=== PATIENT | male | born 1955 | race Caucasian/White ===

== ENCOUNTER 2017-10-11 13:41 | Emergency (ER) | payer OTHER ==
[2017-10-11] MEDS ORDERED: Pantoprazole 40 MG Vial IVPUSH ONE (13:44)
[2017-10-11] MEDS ORDERED: Lactated Ringers 1,000 ML IV ONE (13:44)
[2017-10-11] MEDS ORDERED: Famotidine 20 MG/2 ML SDV IVPUSH ONE (13:44)
[2017-10-11] MEDS ORDERED: Ondansetron 4 MG/2 ML SDV IVPUSH ONE (13:44)
--- NOTE | 2017-10-11 13:44 | EDM.PDOC ---
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 GASTRO-ESOPHAGEAL REFLUX DISEASE WITHOUT ESOPHAGITIS Status: Chronic Priority: Medium Annotation/Comment:: Stable by history with high-dose IV Pepcid and IV Protonix given as GI prophylaxis. (7) Mixed anxiety depressive disorder SNOMED Code(s): 311627795 Code(s): F41.8 - OTHER SPECIFIED ANXIETY DISORDERS Status: Chronic Priority: Medium Annotation/Comment:: Stable by history - Problem List Review Problem List Initiated/Reviewed/Updated: Yes - My Orders Last 24 Hours: My Active Orders 10/11/17 13:44 Peripheral IV Care [RC] . DIRECTED Abdomen Pelvis w Cont [CT] Stat Obtain Past Medical Record [OM.PC] Urgent Peripheral IV Insertion Adult [OM.PC] Stat Resuscitation Status Stat 10/11/17 15:16 H PYLORI STOOL ANTIGEN [MREF] Urgent OCCULT BLOOD DIAGNOSTIC [OP] Stat 10/11/17 17:18 Communication Order [RC] ROUTINE 10/11/17 17:25 CULTURE URINE [RM] Stat UA W/MICROSCOPIC [URIN] Stat - Assessment/Plan Last 24 Hours: My Active Orders 10/11/17 13:44 Peripheral IV Care [RC] . DIRECTED Abdomen Pelvis w Cont [CT] Stat Obtain Past Medical Record [OM.PC] Urgent Peripheral IV Insertion Adult [OM.PC] Stat Resuscitation Status Stat 10/11/17 15:16 H PYLORI STOOL ANTIGEN [MREF] Urgent OCCULT BLOOD DIAGNOSTIC [OP] Stat 10/11/17 17:18 Communication Order [RC] ROUTINE 10/11/17 17:25 CULTURE URINE [RM] Stat UA W/MICROSCOPIC [URIN] Stat Assessment:: As above Plan: As above. Extensive precautions were given to the patient and his , who are in agreement with the treatment plan. Private automobile transfer to [facility] in [facility] for direct admission as above.
[2017-10-11] MEDS ORDERED: cefTRIAXone 1 GM in Sodium Chloride 0.9% 100 ML IV SCH (13:45)
[2017-10-11] MEDS ORDERED: metroNIDAZOLE/Normal Saline 500 MG in Premix Bag 1 BAG IV SCH (13:45)
[2017-10-11 14:03] LABS: CHLORIDE,CL 102 mmol/L (98-107); SODIUM,NA 137 mmol/L (136-145)
[2017-10-11] MEDS: Sodium Chloride 0.9% 10 ML Syringe FLUSH PRN ×2 (14:10→14:52)
[2017-10-11] MEDS ORDERED: Metoclopramide 10 MG/2 ML SDV IVPUSH ONE (14:47)
[2017-10-11] MEDS ORDERED: Iopamidol 612 MG/ML 100 ML Bottle IVPUSH ONE (14:51)
[2017-10-11] MEDS ORDERED: Meperidine PF 50 MG/ML Syringe IM ONE (14:59)
[2017-10-11] MEDS ORDERED: Promethazine 25 MG/ML SDV IM ONE (14:59)
== END 2017-10-11 18:00 ==
LOC: LL.ED 13:41
DX: K56.609 Unspecified intestinal obstruction, unspecified as to partial versus complete obstruction (principal); K21.9 Gastro-esophageal reflux disease without esophagitis; F41.8 Other specified anxiety disorders; I10 Essential (primary) hypertension; F17.210 Nicotine dependence, cigarettes, uncomplicated; E78.5 Hyperlipidemia, unspecified; Z71.6 Tobacco abuse counseling; Z79.899 Other long term (current) drug therapy
CPT/HCPCS: 36415; 74177; 80053; 81001; 82150; 82272; 83605; 83690; 83735; 84550; 85025; 85610; 85730; 87086; 87338; 96365; 96372; 96375; 99285; C9113; J0696; J2175; J2405; J2550; J2765; J3490; J7050; J7120; Q9967

== ENCOUNTER 2021-05-24 02:55 | Emergency (ER) | payer OTHER ==
[2021-05-24] MEDS ORDERED: Sodium Chloride 0.9% 10 ML Syringe FLUSH PRN (03:15)
[2021-05-24] MEDS ORDERED: Lactated Ringers 1,000 ML IV SCH (03:15)
[2021-05-24 03:46] LABS: ANION GAP 11.6 meq/L (7-15); CHLORIDE,CL 104 mmol/L (98-107); SODIUM,NA 140 mmol/L (136-145)
[2021-05-24] MEDS ORDERED: Acetaminophen 500 MG Tab PO ONE (04:46)
[2021-05-24] MEDS ORDERED: Ketorolac 30 MG/ML SDV IM ONE (04:47)
== END 2021-05-24 05:30 | disposition home or self-care (01) ==
LOC: LL.ED 02:55
DX: S01.81XA Laceration without foreign body of other part of head, initial encounter (principal); E78.00 Pure hypercholesterolemia, unspecified; I10 Essential (primary) hypertension; J45.909 Unspecified asthma, uncomplicated; K21.9 Gastro-esophageal reflux disease without esophagitis; N40.0 Benign prostatic hyperplasia without lower urinary tract symptoms; Z79.899 Other long term (current) drug therapy; W00.0XXA Fall on same level due to ice and snow, initial encounter
CPT/HCPCS: 12013; 36415; 70450; 73090; 73130; 73590; 80053; 80307; 85025; 86850; 86900; 86901; 96372; 99283; 99284; A9270; J1885; J7120

== ENCOUNTER 2023-11-14 17:43 | Emergency (ER) | payer MEDICARE, OTHER ==
[2023-11-14] MEDS: Diphtheria,Pertussis(Acell),Tetanus Vaccine 0.5 ML Syringe IM ONE (18:00)
[2023-11-14] MEDS: Lidocaine 1% 5 ML VIAL INJECT ONE (18:01)
== END 2023-11-14 18:20 | disposition home or self-care (01) ==
LOC: LL.ED 17:43
DX: S50.851A Superficial foreign body of right forearm, initial encounter (principal); I10 Essential (primary) hypertension; E78.00 Pure hypercholesterolemia, unspecified; J45.909 Unspecified asthma, uncomplicated; K21.9 Gastro-esophageal reflux disease without esophagitis; Z79.899 Other long term (current) drug therapy; W45.8XXA Other foreign body or object entering through skin, initial encounter
CPT/HCPCS: 10120; 90471; 90715; 99283-25; J3490